=== PATIENT | male | born 1995 | race Two or more races ===

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

== ENCOUNTER 2017-05-09 21:00 | Emergency (ER) | payer MEDICAID ==
[2017-05-09 21:05] VITALS: TEMP 97.9
[2017-05-09] MEDS ORDERED: IBUPROFEN 600 MG TAB PO ONE (21:24)
[2017-05-09] MEDS ORDERED: HYDROCOD/APAP 5/325 PREPACK#6 BTL TAKEHOME ONE (22:31)
--- NOTE | 2017-05-09 22:36 | EDPHY ---
H & P Smoking Status: Never smoked Time Seen by Provider: 05/09/17 21:29 HPI/ROS: CHIEF COMPLAINT: Right shoulder pain HISTORY OF PRESENT ILLNESS: 22-year-old [id number] male presents emergency department complaining of right shoulder pain. Patient states he was at home today when he lifted his arm overhead, felt like it got stuck or dislocated, needed his girlfriend to help push it back "in to place" then he felt another pop. Pt reports since then he has had increasing pain and difficulty with range of motion of his arm. (Lesly Olivier) Physical Exam: GEN: Awake, alert, oriented, no acute distress RESP: nl resp effort MSK: Right shoulder with decreased range of motion due to pain, tenderness and swelling to anterior deltoid, tenderness to palpation to right anterior pack. No AC joint tenderness, no clavicle tenderness, negative Neer and Daley, positive Geary's, no elbow tenderness, 2+ radial pulses SKIN: No break in skin (Lesly Olivier) Constitutional: Initial Vital Signs Temperature (C) 36.6 C 05/09/17 21:02 Heart Rate 61 05/09/17 21:02 Respiratory Rate 14 05/09/17 21:02 Blood Pressure 121/68 H 05/09/17 21:02 O2 Sat (%) 98 05/09/17 21:02 O2 Delivery Mode Room Air Allergies/Adverse Reactions: No Known Allergies Allergy (Verified 12/25/16 10:22) Home Medications: Medication Instructions Recorded Hydrocodone/APAP 5/325 [Mobile 1 tab PO Q4H PRN #7 tab 05/09/17 5/325] MDM/Departure - MDM Imaging Results: Imaging Impressions Shoulder X-Ray 05/09/17 21:21 Impression: Normal Right shoulder series. Medications Given: Discontinued Medications Hydrocodone Bitart/Acetaminophen (Mobile 5/325mg Prepack#6) 1 btl TAKEHOME EDNOW ONE Stop: 05/09/17 22:32 Last Admin: 05/09/17 22:49 Dose: 1 btl Ibuprofen (Motrin) 600 mg PO EDNOW ONE Stop: 05/09/17 21:25 Last Admin: 05/09/17 21:35 Dose: 600 mg ED Course/Re-evaluation: I did not see this patient while he was in the emergency department. However his care was discussed with the nurse practitioner while the patient was in the department. I agree with treatment plan and management (Quintin Garcia) - Depart Disposition: Home, Routine, Self-Care Clinical Impression: Sprain of right shoulder Qualifiers: Encounter type: initial encounter Shoulder sprain type: unspecified sprain Qualified Code(s): S43.401A - Unspecified sprain of right shoulder joint, initial encounter Condition: Good Instructions: Hydrocodone/Acetaminophen (By mouth), Shoulder Sprain (ED) Additional Instructions: rest, ice, wear sling. Take 600mg of ibuprofen every 8 hours with food, take norco for severe pain. [facility]. Return to the ED for worsening symptoms, new symptoms or concerns. Prescriptions: Hydrocodone/APAP 5/325 [Mobile 5/325] 1 tab PO Q4H PRN #7 tab PRN Reason: Pain, Moderate Referrals: [facility] [Other] - As per Instructions Elsa Broussard MD [Medical Doctor] - As per Instructions
[2017-05-09 22:51] VITALS: BP 120/71; PULSE 68; RESP 16; O2SAT 96
== END 2017-05-09 22:55 | disposition home or self-care (01) ==
DX: S43.401A Unspecified sprain of right shoulder joint, initial encounter (principal); X50.0XXA Overexertion from strenuous movement or load, initial encounter; Y92.009 Unspecified place in unspecified non-institutional (private) residence as the place of occurrence of the external cause
CPT/HCPCS: A4565

== ENCOUNTER 2017-07-14 00:46 | Emergency (ER) | payer SELFPAY ==
--- NOTE | 2017-07-14 00:47 | EDPHY ---
H & P HPI/ROS: HPI CHIEF COMPLAINT: Abdominal pain, nausea, vomiting HISTORY OF PRESENT ILLNESS: This patient is a 22-year-old male, otherwise healthy no significant medical history or surgical history does not take any daily medications he presents emergency room with nausea vomiting abdominal pain is abdominal pain is located mid abdomen. Additionally reports chills, muscle aches and joint pain. Main complaint is vomiting and abdominal pain. He describes abdominal pain 6/10 periumbilical region. No back pain. No testicular pain or urinary symptoms. States he vomited multiple times. No diarrhea. Past Medical History: No significant medical history Past Surgical History: No significant surgical history Social History: Denies daily use drugs alcohol tobacco. Family History: Noncontributory ROS REVIEW OF SYSTEMS: A comprehensive 10 point review of systems is otherwise negative aside from elements mentioned in the history of present illness. Exam Constitutional appears well nontoxic triage nursing summary reviewed, vital signs reviewed, awake/alert. Eyes normal conjunctivae and sclera, EOMI, PERRLA. HENT normal inspection, atraumatic, moist mucus membranes, no epistaxis, neck supple/ no meningismus, no raccoon eyes. Respiratory clear to auscultation bilaterally, normal breath sounds, no respiratory distress, no wheezing. Cardiovascular rate normal, regular rhythm, no murmur, no edema, distal pulses normal. Gastrointestinal soft, tender palpation and periumbilical , no rebound, no guarding, normal bowel sounds, no distension, no pulsatile mass. Genitourinary no CVA tenderness. Musculoskeletal no midline vertebral tenderness, full range of motion, no calf swelling, no tenderness of extremities, no meningismus, good pulses, neurovascularly intact. Skin pink, warm, & dry, no rash, skin atraumatic. Neurologic awake, alert and oriented x 3, AAOx3, moves all 4 extremities equally, motor intact, sensory intact, CN II-XII intact, normal cerebellar, normal vision, normal speech. Psychiatric normal mood/affect. Heme/Lymph/Immune no lymphadenopathy. Differential diagnosis includes but is not limited to and in no particular order : Bowel obstruction, appendicitis, gallbladder disease, diverticulitis, colitis , enteritis, perforated viscus, gastritis, GERD, esophagitis, urinary tract infection, pyelonephritis, kidney stones Medical Decision Making: Plan for this patient IV establishment with IV fluid bolus, check abdominal blood work, CT scan abdomen pelvis with IV contrast rule out acute intra-abdominal pathology including appendicitis. Check influenza. Re-evaluation: CT scan abdomen pelvis with IV contrast called to me by Dr. Christopher Don. Unable to visualize appendix but no secondary findings consistent with acute appendicitis, however right lower quadrant mesenteric adenopathy most likely mesenteric adenitis, additionally enteritis seen in the small bowel. 0311: Discussed at length with the patient as well as his sister at bedside that we are unable to visualize appendix. He does report to me that his abdomen pain feels much better after pain medicine he is resting comfortably. He has not any vomiting here. He is p.o. challenge well. Does have a mild leukocytosis. Given that were unable to visualize the appendix on CT I did give him strict return precautions he understands return emergency room if he develops worsening abdominal pain fever or vomiting. However his CT scan does show enteritis and mesenteric adenitis. This most likely the cause of his pain. However he does understand given that we are unable to visualize appendix that this still possibility and if he has worsening abdominal pain fever vomiting he needs return to the emergency room. Source: Patient - Medical/Surgical History Hx Asthma: No Hx Chronic Respiratory Disease: No Hx Diabetes: No Hx Cardiac Disease: No Hx Renal Disease: No Hx Cirrhosis: No Hx Alcoholism: No Hx HIV/AIDS: No Hx Splenectomy or Spleen Trauma: No Other PMH: PSHx: r hand. PMHx: denies - Social History Smoking Status: Never smoked Constitutional: Initial Vital Signs Temperature (C) 37.7 C 07/14/17 00:49 Heart Rate 104 H 07/14/17 00:49 Respiratory Rate 18 07/14/17 00:49 Blood Pressure 121/61 H 07/14/17 00:49 O2 Sat (%) 97 07/14/17 00:49 O2 Delivery Mode Room Air Allergies/Adverse Reactions: No Known Allergies Allergy (Verified 12/25/16 10:22) Home Medications: Medication Instructions Recorded NK [No Known Home Meds] 07/14/17 Medical Decision Making - Data Points Laboratory Results: Laboratory Results 07/14/17 01:00 07/14/17 01:00 07/14/17 07/14/17 07/14/17 02:55 01:00 01:00 WBC 13.28 10^3/uL H 10^3/uL (3.80-9.50) RBC 5.44 10^6/uL 10^6/uL (4.40-6.38) Hgb 17.5 g/dL g/dL (13.7-17.5) Hct 47.2 % % (40.0-51.0) MCV 86.8 fL fL (81.5-99.8) MCH 32.2 pg pg (27.9-34.1) MCHC 37.1 g/dL H g/dL (32.4-36.7) RDW 11.6 % % (11.5-15.2) Plt Count 302 10^3/uL 10^3/uL (150-400) MPV 10.0 fL fL (8.7-11.7) Neut % (Auto) 87.3 % H % (39.3-74.2) Lymph % (Auto) 6.4 % L % (15.0-45.0) [place] % (Auto) 4.2 % L % (4.5-13.0) Eos % (Auto) 1.4 % % (0.6-7.6) Baso % (Auto) 0.4 % % (0.3-1.7) Nucleat RBC Rel Count 0.0 % % (0.0-0.2) Absolute Neuts (auto) 11.60 10^3/uL H 10^3/uL (1.70-6.50) Absolute Lymphs (auto) 0.85 10^3/uL L 10^3/uL (1.00-3.00) Absolute Monos (auto) 0.56 10^3/uL 10^3/uL (0.30-0.80) Absolute Eos (auto) 0.18 10^3/uL 10^3/uL (0.03-0.40) Absolute Basos (auto) 0.05 10^3/uL 10^3/uL (0.02-0.10) Absolute Nucleated RBC 0.00 10^3/uL 10^3/uL (0-0.01) Immature Gran % 0.3 % % (0.0-1.1) Immature Gran # 0.04 10^3/uL 10^3/uL (0.00-0.10) Sodium 142 mEq/L mEq/L (134-144) Potassium 3.7 mEq/L mEq/L (3.5-5.2) Chloride 103 mEq/L mEq/L (97-110) Carbon Dioxide 23 mEq/l mEq/l (22-31) Anion Gap 16 mEq/L mEq/L (8-16) BUN 10 mg/dL mg/dL (7-23) Creatinine 1.0 mg/dL mg/dL (0.7-1.3) Estimated GFR > 60 Glucose 120 mg/dL H mg/dL (70-100) Calcium 9.4 mg/dL mg/dL (8.5-10.4) Total Bilirubin 0.8 mg/dL mg/dL (0.1-1.4) Conjugated Bilirubin 0.1 mg/dL mg/dL (0.0-0.5) Unconjugated Bilirubin 0.7 mg/dL mg/dL (0.0-1.1) AST 22 IU/L IU/L (17-59) ALT 37 IU/L IU/L (21-72) Alkaline Phosphatase 85 IU/L IU/L (38-126) Total Protein 7.7 g/dL g/dL (6.3-8.2) Albumin 4.8 g/dL g/dL (3.5-5.0) Lipase 52 IU/L IU/L (23-300) Urine Color YELLOW Urine Appearance CLEAR Urine pH 8.0 H (5.0-7.5) Ur Specific [place] > 1.035 H (1.002-1.030) Urine Protein NEGATIVE (NEGATIVE) Urine Ketones NEGATIVE (NEGATIVE) Urine Blood NEGATIVE (NEGATIVE) Urine Nitrate NEGATIVE (NEGATIVE) Urine Bilirubin NEGATIVE (NEGATIVE) Urine Urobilinogen NEGATIVE EU EU (0.2-1.0) Ur Leukocyte Esterase NEGATIVE (NEGATIVE) Urine Glucose NEGATIVE (NEGATIVE) Nasal Influenza A PCR Nasal Influenza B PCR 07/14/17 00:58 WBC RBC Hgb Hct MCV MCH MCHC RDW Plt Count MPV Neut % (Auto) Lymph % (Auto) Union % (Auto) Eos % (Auto) Baso % (Auto) Nucleat RBC Rel Count Absolute Neuts (auto) Absolute Lymphs (auto) Absolute Monos (auto) Absolute Eos (auto) Absolute Basos (auto) Absolute Nucleated RBC Immature Gran % Immature Gran # Sodium Potassium Chloride Carbon Dioxide Anion Gap BUN Creatinine Estimated GFR Glucose Calcium Total Bilirubin Conjugated Bilirubin Unconjugated Bilirubin AST ALT Alkaline Phosphatase Total Protein Albumin Lipase Urine Color Urine Appearance Urine pH Ur Specific [place] Urine Protein Urine Ketones Urine Blood Urine Nitrate Urine Bilirubin Urine Urobilinogen Ur Leukocyte Esterase Urine Glucose Nasal Influenza A PCR NEGATIVE FOR FLU A (NEGATIVE) Nasal Influenza B PCR NEGATIVE FOR FLU B (NEGATIVE) Medications Given: Discontinued Medications Hydromorphone HCl (Dilaudid) 0.5 mg IVP EDNOW ONE Stop: 07/14/17 00:55 Last Admin: 07/14/17 01:15 Dose: 0.5 mg Sodium Chloride (Ns) 1,000 mls @ 0 mls/hr IV EDNOW ONE; Wide Open PRN Reason: Protocol Stop: 07/14/17 00:55 Last Admin: 07/14/17 01:06 Dose: 1,000 mls Sodium Chloride (Ns) 1,000 mls @ 0 mls/hr IV EDNOW ONE; Wide Open PRN Reason: Protocol Stop: 07/14/17 00:55 Last Admin: 07/14/17 01:16 Dose: 1,000 mls Ondansetron HCl (Zofran) 4 mg IVP EDNOW ONE Stop: 07/14/17 00:55 Last Admin: 07/14/17 01:14 Dose: 4 mg Departure - Departure Disposition: Home, Routine, Self-Care Clinical Impression: Abdominal pain Qualifiers: Abdominal location: generalized Qualified Code(s): R10.84 - Generalized abdominal pain Condition: Good Instructions: Acute Abdominal Pain (ED) Additional Instructions: 1.We were unable to visualize her appendix on the CT scan. We will allow you to go home however if you have worsening abdominal pain fever or vomiting you need to return to the emergency room for re-evaluation 2. Please return emergency room if develops worsening abdominal pain fever or vomiting. Referrals: [facility] [Other] - As per Instructions
[2017-07-14] MEDS ORDERED: ONDANSETRON 4 MG/2 ML VIAL IVP ONE (00:54)
[2017-07-14] MEDS ORDERED: HYDROmorphONE/DILAUDID 1 MG/ML INJ IVP ONE (00:54)
[2017-07-14] MEDS ORDERED: NS 1,000 ML IV ONE ×2 (00:54)
[2017-07-14 01:08] LABS: % IMMATURE GRANULYOCYTES 0.3 % (0.0-1.1); ABSOLUTE IMMATURE GRANULOCYTES 0.04 10^3/uL (0.00-0.10); ADD DIFF? NO; ADD MORPH? NO; ADD SCAN? NO; ATYPICAL LYMPHOCYTE FLAG 0 (0-99); FRAGMENT RBC FLAG 0 (0-99); HEMATOCRIT 47.2 % (40.0-51.0); HEMOGLOBIN 17.5 g/dL (13.7-17.5); LEFT SHIFT FLG 0 (0-99); LIPEMIA HEMOLYSIS FLAG 90 (0-99); MEAN CELL HEMOGLOBIN 32.2 pg (27.9-34.1); MEAN CELL HEMOGLOBIN CONCENTR. 37.1 g/dL (32.4-36.7); MEAN CELL VOLUME 86.8 fL (81.5-99.8); PLATELET CLUMPS FLAG 10 (0-99); PLATELET COUNT 302 10^3/uL (150-400); RED BLOOD CELL COUNT 5.44 10^6/uL (4.40-6.38); RED CELL DISTRIBUTION WIDTH 11.6 % (11.5-15.2)
[2017-07-14] MEDS ORDERED: IOPAMIDOL (ISOVUE-300) 100 ML BTL ONE ×2 (01:22→02:08)
[2017-07-14 01:25] LABS: ALANINE AMINOTRANSFERASE 37 IU/L (21-72); ALBUMIN 4.8 g/dL (3.5-5.0); ALKALINE PHOSPHATASE 85 IU/L (38-126); ANION GAP 16 mEq/L (8-16); ASPARTATE AMINOTRANSFERASE 22 IU/L (17-59); BILIRUBIN,TOTAL 0.8 mg/dL (0.1-1.4); BILIRUBIN-CONJUGATED 0.1 mg/dL (0.0-0.5); BILIRUBIN-UNCONJUGATED 0.7 mg/dL (0.0-1.1); CALCIUM 9.4 mg/dL (8.5-10.4); CARBON DIOXIDE 23 mEq/l (22-31); CHLORIDE 103 mEq/L (97-110); GLOMERULAR FILTRATION RATE > 60; GLUCOSE 120 mg/dL (70-100); POTASSIUM 3.7 mEq/L (3.5-5.2); SODIUM 142 mEq/L (134-144); TOTAL PROTEIN 7.7 g/dL (6.3-8.2)
[2017-07-14 03:04] LABS: COLOR YELLOW; LEUKOCYTE ESTERASE,URINE NEGATIVE (NEGATIVE); NITRITE,URINE NEGATIVE (NEGATIVE)
[2017-07-14 03:27] VITALS: BP 127/78; PULSE 73; RESP 16; TEMP 98.2; O2SAT 97
== END 2017-07-14 03:26 | disposition home or self-care (01) ==
DX: R10.84 Generalized abdominal pain (principal); E86.9 Volume depletion, unspecified
CPT/HCPCS: 96374; J1170; J2405; Q9967